=== PATIENT | male | born 1960 | race Caucasian/White ===

== ENCOUNTER 2019-03-22 21:14 | Emergency (ER) | payer OTHER ==
[~2019-03-22] VITALS: Ht 167.6 cm; Wt 103.9 kg
[~2019-03-22 21:14] MED LIST: ECO81 PO; FLEXERIL10 MG PO; METFORMIN HCL500 MG PO; ZES10 PO; ZOC20 PO; ZYRTEC10 MG PO
[2019-03-22 21:21] VITALS: Ht 167.6 cm; Wt 103.9 kg
[2019-03-22 22:03] VITALS: BP 140/74
== END 2019-03-22 22:03 | disposition home or self-care (01) ==
LOC: ED 21:14
DX: H72.92 Unspecified perforation of tympanic membrane, left ear (principal); H60.92 Unspecified otitis externa, left ear; I10 Essential (primary) hypertension; E11.9 Type 2 diabetes mellitus without complications